=== PATIENT | female | born 1960 | race Caucasian/White ===

== ENCOUNTER 2016-11-09 01:34 | Emergency (ER) | payer OTHER ==
[~2016-11-09] VITALS: Ht 167.6 cm; Wt 78.0 kg
[2016-11-09] MEDS ORDERED: SYNT25TA PO (01:40)
[2016-11-09 01:41] VITALS: BP 168/83; PULSE 92; RESP 30; TEMP 98.3; O2SAT 97
[2016-11-09 01:42] VITALS: O2SAT 98
[2016-11-09] MEDS ORDERED: RESP: ALBUTEROL 2.5 MG/IPRATROPIUM 0.5 MG NEB (SCH) ONE (01:48)
[2016-11-09 01:52] VITALS: RESP 30
[2016-11-09] MEDS: RESP: ALBUTEROL 2.5 MG/IPRATROPIUM 0.5 MG NEB (SCH) INH (02:00)
[2016-11-09] MEDS ORDERED: SODIUM CHLORIDE 0.9% FLUSH 10 ML FLUSH IVF PRN (02:00)
[2016-11-09] MEDS ORDERED: LORazepam 2 MG/ML VIAL IV PUSH ONE (02:00)
[2016-11-09 02:12] LABS: BASOPHIL % 0.3 % (0.0-2.0); EOSINOPHIL # 0.2 TH/MM3 (0-0.4); EOSINOPHIL % 2.3 % (0.0-4.0); HEMO FLAGS DIFF FINAL; LYMPH % 38.8 % (9.0-44.0); LYMPHOCYTE # 4.1 TH/MM3 (1.0-4.8); MEAN CELL VOLUME 92.7 FL (80.0-100.0); MEAN CORPUSCULAR HEMOGLOBIN 30.9 PG (27.0-34.0); MEAN CORPUSCULAR HGB CONC 33.3 % (32.0-36.0); MONO % 10.8 % (0.0-8.0); NEUT % 47.8 % (16.0-70.0); PLATELET COUNT 213 TH/MM3 (150-450); RED BLOOD COUNT 4.21 MIL/MM3 (4.00-5.30); RED CELL DISTRIBUTION WIDTH 13.9 % (11.6-17.2); WHITE BLOOD COUNT 10.5 TH/MM3 (4.0-11.0)
[2016-11-09 02:14] VITALS: BP 159/82; PULSE 86; RESP 26; O2SAT 96
[2016-11-09] MEDS: MORPHINE SULFATE 8 MG/ML INJ IV PUSH ONE ×2 (02:29→02:30)
[2016-11-09] MEDS ORDERED: LIDOCAINE VISCOUS 2% SOLN 15 ML UDC PO ONE (02:30)
[2016-11-09 02:31] LABS: BICARBONATE 23.7 MEQ/L (21.0-32.0); POTASSIUM 3.8 MEQ/L (3.5-5.1)
--- NOTE | 2016-11-09 02:32 | PD ---
HPI Chief Complaint: Respiratory Distress Time Seen by Provider: 01:50 Travel History International Travel<30 days: No Contact w/Intl Traveler<30days: No Traveled to known affect area: No History of Present Illness HPI 56-year-old female arrives from home due to shortness of breath with wheezing. She arrives by EMS. 3 rounds of albuterol were given along with 125 mg Solu- Medrol. Initially she had wheezing throughout. She reports marked improvement after the breathing treatments. EMS reports blood pressure on scene 150/90 with a blood pressure in the 90s and a blood glucose of 114. The patient reports a cough as of the last few days. She's had no fever. She reports chest tightness however denies chest pain when asked directly. She states she's had multiple asthma exacerbations since moving to [place]. She quit smoking almost 10 years ago. [facility] Past Medical History Asthma: Yes COPD: Yes Hypertension: Yes Immunizations Current: Yes Tetanus Vaccination: Unknown Influenza Vaccination: No Past Surgical History Hysterectomy: Yes Social History Alcohol Use: Yes (socially) Tobacco Use: No Substance Use: No Allergies-Medications (Allergen,Severity, Reaction): Coded Allergies: No Known Allergies (Unverified , 11/09/16) Reported Meds & Prescriptions Reported Meds & Active Scripts Active Reported Synthroid (Levothyroxine Sodium) 25 Mcg Tab 25 Mcg PO DAILY Review of Systems Except as stated in HPI: all other systems reviewed are Neg General / Constitutional: No: Fever Respiratory: Positive: Cough, Shortness of Breath, Wheezing Physical Exam Narrative GENERAL: 56-year-old female pleasant well-nourished well-developed conversational dyspnea, violent cough SKIN: Focused skin assessment warm/dry. HEAD: Atraumatic. Normocephalic. EYES: Pupils equal and round. No scleral icterus. No injection or drainage. ENT: No nasal bleeding or discharge. Mucous membranes pink and moist. NECK: Trachea midline. No JVD. CARDIOVASCULAR: Tachycardia. Regular rhythm. RESPIRATORY: Tachypnea. Wheezing present bilaterally. GASTROINTESTINAL: Abdomen soft, non-tender, nondistended. Hepatic and splenic margins not palpable. MUSCULOSKELETAL: No obvious deformities. No clubbing. No cyanosis. No edema. NEUROLOGICAL: Awake and alert. No obvious cranial nerve deficits. Motor grossly within normal limits. Normal speech. PSYCHIATRIC: Appropriate mood and affect; insight and judgment normal. Data Data Last Documented VS Vital Signs Date Time Temp Pulse Resp B/P Pulse Ox O2 Delivery O2 Flow Rate FiO2 11/09/16 03:16 24 11/09/16 02:14 86 159/82 96 Nasal Cannula 2 11/09/16 01:41 98.3 Vital signs reviewed Orders Albuterol-Ipratropium Neb (Duoneb Neb) (11/09/16 01:48) Complete Blood Count With Diff (11/09/16 01:50) Basic Metabolic Panel (Bmp) (11/09/16 01:50) Electrocardiogram (11/09/16 01:50) Ecg Monitoring (11/09/16 01:50) Oximetry (11/09/16 01:50) Oxygen Administration (11/09/16 01:50) Chest, Single Ap (11/09/16 01:50) Sodium Chloride 0.9% Flush (Ns Flush) (11/09/16 02:00) Albuterol-Ipratropium Neb (Duoneb Neb) (11/09/16 02:00) Lorazepam Inj (Ativan Inj) (11/09/16 02:00) Morphine Inj (Morphine Inj) (11/09/16 02:30) Lidocaine 2% Viscous (Xylocaine 2% Visco (11/09/16 02:30) Troponin I (11/09/16 02:22) Acetaminophen (Tylenol) (11/09/16 02:45) Guaifen-Cod 200-20 Mg/10ml Liq (Robituss (11/09/16 02:45) Albuterol Neb (Albuterol Neb) (11/09/16 02:45) Labs Laboratory Tests Test 11/09/16 01:55 White Blood Count 10.5 TH/MM3 Red Blood Count 4.21 MIL/MM3 Hemoglobin 13.0 GM/DL Hematocrit 39.0 % Mean Corpuscular Volume 92.7 FL Mean Corpuscular Hemoglobin 30.9 PG Mean Corpuscular Hemoglobin 33.3 % Concent Red Cell Distribution Width 13.9 % Platelet Count 213 TH/MM3 Mean Platelet Volume 9.0 FL Neutrophils (%) (Auto) 47.8 % Lymphocytes (%) (Auto) 38.8 % Monocytes (%) (Auto) 10.8 % Eosinophils (%) (Auto) 2.3 % Basophils (%) (Auto) 0.3 % Neutrophils # (Auto) 5.0 TH/MM3 Lymphocytes # (Auto) 4.1 TH/MM3 Monocytes # (Auto) 1.1 TH/MM3 Eosinophils # (Auto) 0.2 TH/MM3 Basophils # (Auto) 0.0 TH/MM3 CBC Comment DIFF FINAL Differential Comment Sodium Level 140 MEQ/L Potassium Level 3.8 MEQ/L Chloride Level 104 MEQ/L Carbon Dioxide Level 23.7 MEQ/L Anion Gap 12 MEQ/L Blood Urea Nitrogen 15 MG/DL Creatinine 0.82 MG/DL Estimat Glomerular Filtration 72 ML/MIN Rate Random Glucose 139 MG/DL Calcium Level 9.0 MG/DL Troponin I LESS THAN 0.02 NG/ML MDM Medical Decision Making Medical Screen Exam Complete: Yes Emergency Medical Condition: Yes Medical Record Reviewed: Yes Differential Diagnosis COPD exacerbation, asthma exacerbation, anemia, pneumonia, renal failure, acute coronary syndrome Narrative Course EKG shows a sinus rhythm at 86 with normal axis and intervals X-ray reveals minimal basilar atelectasis CBC & BMP Diagram 11/09/16 01:55 Troponin less than 0.02 Patient reassessed at 2:30 AM. Wheezing has improved. Patient has a severe cough which she states causes severe chest pain and headache. She refused morphine and viscous lidocaine. Guaifenesin ordered. Additional DuoNebs ordered. Reassessed at 0300: pt reports continued continued. and pt reports cough is normal for patient since moving to [place]. We'll send home with Albuterol inhaler, prednisone, Tessalon Perles and guaifenesin. Patient agreeable with plan. Return precautions discussed Diagnosis Primary Impression: Wheezing Additional Impression: Cough Referrals: Primary Care Physician 2 days Additional Instructions: You have a choice when it comes to health care, and we are glad that you chose [facility]. Hopefully, we have met your expectations on today's visit. You are welcome to return to [facility] at any time, as we are committed to meeting the health care needs of our community. Med/Other Pt SpecificInfo: Prescription(s) given Scripts Albuterol 18 GM Inh (Ventolin Hfa 18 GM Inh)90 Mcg/Act Aer2 Puff INH Q6H PRN ( SHORTNESS OF BREATH) #1 INHALER Ref 0 Prov:Mian Adhikari MD 5/21/17 Prednisone 20 Mg Tab40 Mg PO DAILY 3 Days Ref 0 Prov:Mian Adhikari MD 11/09/16 Guaifenesin-Codeine Liq 100-10 Mg/5 Ml Soln10 Ml PO Q6H PRN (COUGH) 5 Days Ref 0 Prov:Mian Adhikari MD 11/09/16 Benzonatate (Tessalon Perles)100 Mg Lvs057 Mg PO TID PRN (COUGH) #10 CAP Ref 0 Prov:Mian Adhikari MD 11/09/16 Disposition: 01 DISCHARGE HOME Condition: Stable Mian Adhikari MD November 09, 2016 02:32
--- NOTE | 2016-11-09 02:37 | RADRPT ---
EXAM DATE/TIME: 11/09/2016 01:56 [facility] COMPARISON: No previous studies available for comparison. INDICATIONS : Patient states productive cough for a couple of days and tonight she has became short of breath. Prev ious smoker. MEDICAL HISTORY : Chronic obstructive pulmonary disease. Hypertension SURGICAL HISTORY : None. ENCOUNTER: Initial ACUITY: 2 days PAIN SCORE: 0/10 LOCATION: Bilateral chest FINDINGS: A single view of the chest demonstrates the lungs to be symmetrically aerated without evidence of mas s, infiltrate or effusion. Minimal basilar atelectasis. The cardiomediastinal contours are unremarka ble. Osseous structures are intact. CONCLUSION: 1. Minimal basilar atelectasis. Exam otherwise unremarkable. Alton Cheung MD on November 09, 2016 at 2:35 Board Certified Radiologist. This report was verified electronically.
[2016-11-09] MEDS ORDERED: ACETAMINOPHEN 325 MG TAB PO ONE (02:45)
[2016-11-09] MEDS ORDERED: guaiFENesin/CODEINE SYRUP 200 MG/20 MG/10 ML CUP PO ONE (02:45)
[2016-11-09] MEDS: RESP: ALBUTEROL 2.5 MG/3 ML NEB (SCH) INH ×2 (02:56→02:57)
[2016-11-09 03:16] VITALS: RESP 24
[2016-11-09] MEDS ORDERED: BENZ100 PO (03:24)
[2016-11-09] MEDS ORDERED: VENTAER INH (03:24)
[2016-11-09] MEDS ORDERED: PRED20 PO (03:24)
[2016-11-09] MEDS ORDERED: GUAI100S5 PO (03:24)
[2016-11-09] MEDS ORDERED: ALBUTEROL SULFATE 90 MCG/ACT HFA 8 GM INHALER INH ONE (03:30)
[2016-11-09] MEDS ORDERED: ALBUTEROL SULFATE 90 MCG/ACT HFA 18 GM INHALER INH ONE (03:33)
--- NOTE | 2016-11-09 16:46 | EKG ---
Date Performed: 11/09/2016 Time Performed: 01:47:49 PTAGE: 56 years EKG: Sinus rhythm NONSPECIFIC ST & T-WAVE ABNORMALITY BORDERLINE ECG NO PREVIOUS TRACING DOCTOR: Sunita Boss Interpretating Date/Time 11/09/2016 16:42:02
== END 2016-11-09 04:28 | disposition home or self-care (01) ==
LOC: NEPC 01:34
DX: R06.2 Wheezing (principal); R05 Cough; R07.89 Other chest pain; R94.31 Abnormal electrocardiogram [ECG] [EKG]; I10 Essential (primary) hypertension; Z87.09 Personal history of other diseases of the respiratory system
CPT/HCPCS: 71010; 80048; 84484; 85025; 93005; 94640; 94664; 96374; 99284; J2060; J7613; J2270